=== PATIENT | female | born 1950 | race Native Hawaiian/Other Pacific Islander ===

== ENCOUNTER 2023-02-06 06:13 | Inpatient (IN) | payer OTHER, SELFPAY ==
[2023-01-30 13:58] VITALS: BMI 35.7
[2023-02-06] VITALS (28 sets, daily range): BP systolic 88–181; BP diastolic 38–102; PULSE 88–152; RESP 13–29; TEMP 35.8–36.9; O2SAT 90–100; BMI 36.1
[2023-02-06 07:08] LABS: COVID19 -Nasal RAPID Negative (Negative)
[2023-02-06] MEDS: LACTATED RINGERS 1,000 ML 42 ML IV ×4 (07:09→16:03)
--- NOTE | 2023-02-06 07:37 | PM.PREOP ---
Pre-operative Note COVID-19 COVID-19 status: Negative Result date/Date tested (Pos, Neg/Pending): 02/05/23 Criteria for continued procedure: Expected advancement of disease process, Possibility delay results in more complex future surgery or treatment, Increased loss of function, Continuing or worsening of significant or severe pain, Deterioration of the patient's condition or overall health and Delay expected to result in less-positive ultimate med/surg outcome Interval Note History & Physical reviewed/Exam performed by Physician: Yes Changes to H&P: No
[2023-02-06] MEDS: CEFAZOLIN 2 GM/100 ML PREMIX 100 ML IV ×3 (08:15→19:55)
[2023-02-06] MEDS: BUPIVACAINE LIPOSOME 266 MG/20 ML VIAL INJ (08:28)
[2023-02-06] MEDS: BUPIVACAINE 0.25% (PF) VIAL 30 ML INJ (08:30)
--- NOTE | 2023-02-06 08:38 | SUR.OPER ---
Prone on spine table, head in foam head support, padded chest and pelvic supports, gel pad at knees, lower legs supported by pillows; nipples, genitalia and toes free of pressure, arms secured on foam padded arm boards at <90 degrees abduction. Tape over blanket at thigh secured to table.
[2023-02-06] MEDS: ACETAMINOPHEN IV 1,000 MG/100 ML VIAL 400 MG IV (12:51)
--- NOTE | 2023-02-06 13:32 | DI.RAD.S_ITS ---
PROCEDURE: XR LUMBAR SPINE 2-3V INDICATIONS: L2-3, L3-4, L4-5 TLIF TECHNIQUE: 2 views of the lumbar spine were acquired. COMPARISON: None. FINDINGS: 2 limited intraoperative fluoroscopic images of the lumbar spine demonstrate posterior spinal fusion of L2 through L5 with associated discectomies at these levels and placement of interbody spacers. IMPRESSION: Intraoperative fluoroscopic support for posterior spinal fusion of L2 through L5. Please see operative report for further details. Dictated by: Willie Cabral M.D. on 02/06/2023 at 14:06 Approved by: Willie Cabral M.D. on 02/06/2023 at 14:08
--- NOTE | 2023-02-06 13:53 | PM.OP.1 ---
Operative Date/Time/Diagnoses Date of procedure: 02/06/23 Time of procedure: 07:40 Pre-op diagnosis: 1. L2-3, L3-4, L4-5 spondylolisthesis 2. L2-3, L3-4, L4-5 spinal stenosis with neurogenic claudication Post-op diagnosis: same Procedure & Clinicians Procedure: 1. L2-3, L3-4, L4-5 Postero-lateral and posterior interbody fusion 2. L2-3, L3-4, L4-5 interbody cage placement. 3. L2-3, L3-4, L4-5 decompressive laminectomy with bilateral facetecomies 4. L2-3, L3-4, L4-5 Posterior segmental instrumentation 5. [place] of bone marrow from iliac crest 6. Utilization of microsurgical technique and operating microscope 7. Utilization of robotic assisted navigation surgery Same procedure as scheduled: Yes Indications: Patient has been having chronic back pain and worsening lumbar radiculopathy and symptoms of neurogenic claudication. Patient failed multiple conservative management with worsening pain weakness and numbness in her lower extremity. Patient has been having difficulty performing activity of daily living. After discussing risks benefits of treatment options, patient elected proceed with surgery. Surgeon: Harriet Carrera Deli Manager: Theodora Olmos Click Yes if Unassisted: No Anesthesia Type: General Operative Notes Closure Type: primary Specimen(s): none sent Prosthetic devices, grafts, tissues, transplants, or devices: Globus CREO MIS screws, Rise cages Applied: catheter Estimated Blood Loss (mL): 500 Blood products transfused: none Procedure in detail: Patient was seen in the preoperative area. Risks and benefits of the surgery was discussed with the patient. Informed consent was obtained from the patient and placed in the chart. Surgical site was marked. Patient was taken to the operative room. General anesthesia was administered. Prophylactic antibiotic was given to the patient less than 30 min before the incision was made. Patient was placed into a prone position on the Bahman table. Patient's back was then prepped and draped in the sterile fashion. Time-out was performed at this time. After patient was prepped and draped, patient's PSIS was palpated and marked bilaterally. Small 1 cm incision was made over the PSIS for placement of the reference probes. Two trocar was placed into the PSIS 1 on each side. The reference probe was attached to the trocar of the reference apparatus. At this time the C-arm imaging was used to confirm AP and lateral of L2, L3, L4, L5 vertebrae and merged the C-arm imaging using the thesweetlink robotic navigation system with the CT of the lumbar spine. After successful merging was completed and confirmed, skin marker was used to tessie out the skin incision using the thesweetlink robotic arm. Bilateral incision was made at this time. Pre templated trajectory was used and guided using the thesweetlink robotic navigation system for bilateral L2 L3, L4, L5 pedicle screw placement. This was done by using the robotic arm to guide the high-speed bur to make a cortical entry point. Next a drill was placed also using the robotic arm and guided using the navigation system drilling partially through bilateral L2, L3, L4, L5 pedicles. Next L2, L3, L4, L5 pedicle screws it was pre templated and measured was placed onto the power otr van cdl truck driver and inserted into the pedicles bilaterally. After all 6 screws were placed C-arm imaging was taken of both AP and lateral to confirm the placement. Excellent placement of the screws were confirmed and a matched precisely with the pre planned screw placement using the navigation system. MARs retractor was inserted using [employer] Yoga[employer] guidence. Globus MARS retractors was placed inside the incision and docked onto the L2, L3, L4 lamina. Using microsurgical technique and operating microscope, a L2, L3, L4 laminectomy and L2-3, L3-4, L4-5 facetectomy was performed using a Kerrison rongeur. Patient was found have severe central, lateral recess and neural foramen stenosis which was fully decompressed after the laminectomy and facetectomy. More than 75% of the facets were removed during the process of decompression rendering L2-3, L3-4, L4-5 level grossly unstable and required a fusion procedure at the same time. The disc space at L2-3, L3-4, L4-5 was identified, and a total diskectomy was performed at L2-3, L3-4, L4-5 level. The endplates were decorticated using a rasp and shaver. The total diskectomy and decortication was performed at L2-3, L3-4, L4-5 level in order to to accomplish a L2-3, L3-4, L4-5 fusion. The local bone from the laminectomy and facetectomy was saved for local bone grafting. After the total diskectomy and decortication was completed, Trifecta bone graft material was combined with local bone that was harvested earlier. At this time, a separate skin is incision was made over the iliac crest. A Jamshidi needle was inserted into the iliac crest through a separate skin incision. 5 cc of bone marrow aspiration was obtained through the separate skin incision using a Jamshidi needle from the iliac crest. The bone marrow aspiration was combined with local bone and the Trifecta bone grafting material. The bone grafting material was placed into the L2-3, L3-4, L4-5 interbody space along with expandable cages. One cage each was inserted into the L2-3 L3-4 L4-5 interbody space along with bone graft material. The cage was expanded to its maximum height using the torque limiting screwdriver. The disc preparation as well as the cage insertion were also performed under navigation guidance. After the cage was placed, AP and lateral C-arm imaging was taken to confirm placement of the cage and excellent position was confirmed. Globus MARS retractor was inserted and docked onto the L2-3, L3-4 L4-5 posterolateral gutter on the right side. Using the power drill, posterior-lateral decortication was performed at L2-3, L3-4 L4-5 level until bleeding cortical bone was identified. The remaining bone grafting material was placed into the L2-3, L3-4 L4-5 posterior lateral gutter he order to accomplish posterolateral fusion at the L2-3, L3-4, L4-5 level. At this time the tulips were attached to the L2, L3, L4, L5 pedicle screw shanks. After measuring the length of the rods, they were inserted into the tulips of the pedicle screws and locked in place using locking caps and torque limiting screwdriver bilaterally. Total 6 caps and 2 titanium rods was used in order to complete the posterior instrumentation construct. After all the hardware was placed, and confirmed with AP and lateral C-arm imaging, the wound was then irrigated with sterile normal saline and packed with Ray-Heena gauze for 3 min to accomplish hemostasis. After the gauze was removed the deep fascia was closed with #1 Vicryl suture. The subcutaneous layer was closed with 2-0 Vicryl. The skin was closed with skin pj. Patient tolerated the procedure well. There were no complications. Neuro monitoring system was used to monitor patient's neurologic status throughout entire procedure. There was no disturbance of the neural monitoring signals throughout the case. Complications: none Post-operative Condition: stable Disposition: PACU Plan for aftercare: Admit to inpatient hospital
[2023-02-06] MEDS: HYDROMORPHONE 2 MG INJ IV ×4 (15:18→17:11)
--- NOTE | 2023-02-06 15:38 | SUR.PHASEI ---
Dr Garcia notified of atrial fib rate increasing to 130's 140's periodically. Instruced to give metoprolol 5 mg IV only if pt did not take her's this a.m. Pt too 25 mg at 0500 so metoprolol 5 mg iv not given
--- NOTE | 2023-02-06 15:42 | SUR.PHASEI ---
ST initially charted for rhythms. Pt has been in Atrial fib rates low 100's to 130's.
[2023-02-06] MEDS: hydrOXYzine pamoate 25 MG CAPSULE PO (15:48)
[2023-02-06] MEDS: METOPROLOL TARTRATE 5 MG/5 ML INJ IV (16:01)
--- NOTE | 2023-02-06 16:04 | SUR.PHASEI ---
Orders receivedd from Dr Garcia for atrial fib rates 140's - 150's. Given over 5 minutes with immediate results. A-fib now low 100's to 115 .
--- NOTE | 2023-02-06 16:08 | SUR.PHASEI ---
lower back dressing dry and intact. Pt resting quietly with not complaints.
--- NOTE | 2023-02-06 16:19 | SUR.PHASEI ---
Attempted to call report. Faina will call back.
--- NOTE | 2023-02-06 16:55 | SUR.PHASEI ---
Repositioned for comfort to left side-lying. Remedicated with Dilauddid 0.5 mg IV New order received for 25MG PO metoprolol now for HR 130's - 140's atrial fib. transfer to floor delayed due to pt condition.
[2023-02-06] MEDS: METOPROLOL IR 25 MG TABLET PO ×2 (17:01→19:54)
--- NOTE | 2023-02-06 17:16 | SUR.PHASEI ---
Notified Dr Garcia of pt's condition. Atrial fib 140's No new orders recieved at this time. Awaiting new orderws
--- NOTE | 2023-02-06 17:18 | SUR.PHASEI ---
Awaiting new orders
--- NOTE | 2023-02-06 17:34 | SUR.PHASEI ---
report to Ishmael PACK
--- NOTE | 2023-02-06 17:53 | SUR.PHASEI ---
Dr. Carrera to call [facility] and have a consult with Dr. Green. Pt to be admitted to the ICU. for increased heart rate of the 140-155.
--- NOTE | 2023-02-06 17:59 | SUR.PHASEI ---
report given to Glenny Aggarwal RN.
--- NOTE | 2023-02-06 18:31 | PC.NURSE ---
Admit Note Patient arrived to room from PACU at this time. Bedside report received from Glenny. Patient is alert and oriented x3, answering all questions appropriately. RA with SpO2 95%. Afib 130s to 140s. Denies any pain. Dressing to back D/I, small shadow drainage visible and outlined. Area of blanchable erythema over each hip. Good pulses to both LEs, numbness of feet at baseline per pt. Rapp in place and draining. Oriented to room and to call light/bed/tv controls. Bed alarm on for safety. Pt very diaphoretic, linens/gown changed.
[2023-02-06] MEDS: dilTIAZem 5 MG/ML SDV 20 MG IV (18:42)
[2023-02-06] MEDS: METFORMIN HCL 500 MG TABLET 250 MG PO (18:44)
[2023-02-06] MEDS: LACTATED RINGERS 1,000 ML 125 ML IV (18:46)
[2023-02-06] MEDS: AMLODIPINE 5 MG TABLET 10 MG PO (18:46)
[2023-02-06] MEDS: glyBURIDE 2.5 MG TABLET PO (18:46)
--- NOTE | 2023-02-06 19:08 | DI.RAD.S_ITS ---
PROCEDURE: XR CHEST 1V INDICATIONS: sob TECHNIQUE: One view of the chest was acquired. COMPARISON: None. FINDINGS: Surgical changes and devices: None. Lungs and pleura: There is pulmonary vascular prominence consistent with pulmonary edema. A small left pleural effusion is present. No pneumothorax. Mediastinum: Mediastinal contours appear normal. Heart size is enlarged. Bones and chest wall: No suspicious bony lesions. Overlying soft tissues appear unremarkable. IMPRESSION: 1. Pulmonary edema with cardiomegaly and small left pleural effusion compatible with congestive heart failure. Dictated by: Elijah Mcfadden M.D. on 02/06/2023 at 20:31 Approved by: Elijah Mcfadden M.D. on 02/06/2023 at 20:32
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
[2023-02-06] MEDS: DOCUSATE 100 MG CAPSULE PO (20:57)
[2023-02-06] MEDS: INSULIN LISPRO 100 UNIT/ML 3ML VIAL SUBCUT (20:57)
[2023-02-06] MEDS: SENNOSIDES 8.6 MG TABLET 17.2 MG PO (20:57)
[2023-02-06 21:02] LABS: Hematocrit 33.4 % (36-46); Hemoglobin 10.7 g/dL (12.0-16.0); Mean Corpuscular HGB Conc 32.2 % (30-36); Mean Corpuscular Hemoglobin 28.5 PG (26-34); Mean Corpuscular Volume 88.6 fL (80-100); Platelet Count 238 X10^3/uL (150-400); Red Blood Cell Count 3.77 X10^6/uL (4.0-5.2); Red Cell Distribution Width 12.8 % (11.6-14.8); White Blood Cell Count 15.2 X10^3/uL (4.5-11.0)
[2023-02-06 21:18] LABS: Alanine Aminotransferase 161 IU/L (<35); Albumin 3.6 g/dL (3.5-5.0); Albumin Globulin Ratio 1.2 (1.0-2.8); Alkaline Phosphatase 69 U/L (38-126); Aspartate Aminotransferase 308 IU/L (14-36); BUN Creatinine Ratio 26.6 (6-22); Bilirubin Total 0.7 mg/dL (0.2-1.3); Blood Urea Nitrogen 17 mg/dL (7-17); Carbon Dioxide 22 mmol/L (22-32); Chloride 100 mmol/L (98-107); Estimated Glomerular Filt Rate > 60 mL/min (>60); Glucose 271 mg/dL (80-110); HEMOLYSIS < 15 (0-50); Potassium 4.5 mmol/L (3.4-5.1); Sodium 133 mmol/L (137-145); Total Protein 6.6 g/dL (6.3-8.2)
[2023-02-06 21:26] LABS: NT-proBNP (BNP-Adult 18+) 459 pg/mL (<125)
[2023-02-06 21:29] LABS: Troponin I 0.095 ng/mL (0.01-0.034)
[2023-02-06] MEDS: FUROSEMIDE 20 MG/2 ML VIAL IV (22:34)
[2023-02-06] MEDS: ACETAMINOPHEN 325 MG TABLET 650 MG PO (22:34)
[2023-02-06 23:49] LABS: Troponin I 0.121 ng/mL (0.01-0.034)
[2023-02-07] VITALS (9 sets, daily range): BP systolic 122–179; BP diastolic 58–81; PULSE 89–115; RESP 18–23; TEMP 36.6–37.1; O2SAT 95–99
[2023-02-07] MEDS: LOSARTAN 50 MG TABLET PO (00:31)
[2023-02-07 00:32] LABS: MRSA (Nasal) PCR Not Detected (Not Detect)
[2023-02-07] MEDS: HYDROMORPHONE 0.5 MG INJ IV (00:39)
[2023-02-07] MEDS: CEFAZOLIN 2 GM/100 ML PREMIX 100 ML IV (03:55)
[2023-02-07 05:12] LABS: Add Manual Diff / Slide Review NO; Basophils Absolute Auto 0 /uL (0-100); Basophils Percent Auto 0.2 % (0-2); Eosinophils Absolute Auto 0 /uL (0-450); Hematocrit 33.8 % (36-46); Hemoglobin 11.1 g/dL (12.0-16.0); Lymphocytes Absolute Auto 1300 /uL (1100-4500); Lymphocytes Percent Auto 8.4 % (25-40); Mean Corpuscular HGB Conc 32.7 % (30-36); Mean Corpuscular Hemoglobin 28.9 PG (26-34); Mean Corpuscular Volume 88.4 fL (80-100); Monocytes Absolute Auto 1600 /uL (0-900); Monocytes Percent Auto 9.8 % (3-14); Neutrophils Absolute Auto 13000 /uL (1500-7000); Neutrophils Percent Auto 81.6 % (50-75); Platelet Count 192 X10^3/uL (150-400); Red Blood Cell Count 3.83 X10^6/uL (4.0-5.2); Red Cell Distribution Width 12.7 % (11.6-14.8)
[2023-02-07 05:23] LABS: Alanine Aminotransferase 225 IU/L (<35); Albumin 3.4 g/dL (3.5-5.0); Albumin Globulin Ratio 1.1 (1.0-2.8); Alkaline Phosphatase 61 U/L (38-126); Aspartate Aminotransferase 586 IU/L (14-36); BUN Creatinine Ratio 25.8 (6-22); Bilirubin Total 0.9 mg/dL (0.2-1.3); Blood Urea Nitrogen 16 mg/dL (7-17); Calcium 8.3 mg/dL (8.4-10.2); Carbon Dioxide 26 mmol/L (22-32); Chloride 98 mmol/L (98-107); Estimated Glomerular Filt Rate > 60 mL/min (>60); Glucose 214 mg/dL (80-110); HEMOLYSIS < 15 (0-50); Potassium 4.6 mmol/L (3.4-5.1); Sodium 132 mmol/L (137-145); Total Protein 6.4 g/dL (6.3-8.2)
[2023-02-07 05:48] LABS: Troponin I 0.127 ng/mL (0.01-0.034)
--- NOTE | 2023-02-07 06:15 | PC.NURSE ---
Net Mender Note-Patient remains in A-fib, rate 80s-115, BP 140s/70s to 180/80s, PO metorolol and losartan given, IV Lasix given, 1525ml UOP. Denies chest pain, palpitations, or dyspnea. Post-op back pain controlled with Tylenol and IV Dilaudid. Drsg reinforced. Patient sat up in chair for few hours.
--- NOTE | 2023-02-07 06:24 | DI.ECHO.S_ITS ---
+ + :Name: RISHABH CRAWFORD Study Date: 02/07/2023 Height: 60 in : :Hospital ReadingLocation: Weight: 185 lb : : Gender: Female BSA: 1.8 m2 : :: 1950 Age: 72 yrs BP: 149/71 mmHg: :Reason For Study: ELEVATED TROPNIN : :Ordering Physician: RYANNE, : :SHAUN Performed By: Candis Talavera : :Referring: SHAUN PEARL : + + Interpretation Summary 1) Normal left ventricular thickness, size, wall motion, and systolic function (EF 60-65%). 2) The right ventricle is at the upper limits of normal in size. Right ventricular systolic function is at the lower limits of normal. 3) There is mild to moderate aortic stenosis (valve area 1.2cm2, mean gradient 23mmHg, severity ratio 0.38). 4) No prior Echo available for comparison. Procedure: A two-dimensional transthoracic echocardiogram with color flow and Doppler was performed. The study quality was technically adequate. There is no prior echocardiogram noted for this patient. The patient was in atrial fibrillation with heart rates between 87-111 bpm during the exam. Left Ventricle: The left ventricle is normal in size and wall thickness. The ejection fraction is estimated to be 60-65%. Left ventricular systolic function appears normal without focal wall motion abnormalities. Diastolic parameters suggest a pseudonormalization pattern, consistent with probable elevated filling pressures. Right Ventricle: The right ventricle is at the upper limits of normal in size. Right ventricular systolic function is at the lower limits of normal. Atria: The left atrium is mildly dilated. Right atrial size is normal. There is no Doppler evidence for an interatrial shunt. Mitral Valve: The mitral valve is normal in structure and function. There is mild mitral regurgitation. Aortic Valve: The aortic valve is mildly calcified. The peak aortic velocity is 3.2 m/sec. The aortic valve mean gradient is 23 mmHg. The calculated aortic valve area is 1.2 cm2. There is mild to moderate aortic stenosis. There is mild aortic regurgitation. Tricuspid Valve: The tricuspid valve leaflets are thin and pliable. There is mild tricuspid regurgitation. The right ventricular systolic pressure is estimated to be at least 43 mmHg based on an estimated right atrial pressure of 3 mm Hg. Pulmonic Valve: The pulmonic valve leaflets are thin and pliable; valve motion is normal. There is mild to moderate pulmonic regurgitation. Great Vessels: The aortic root is normal size. The dimensions of the ascending aorta are normal. The IVC is of normal diameter and collapses greater than 50% with a sniff. This suggests a low right atrial pressure of 3 mm Hg. Pericardium/ Pleura There is no pericardial effusion. There is no pleural effusion. MMode/2D Measurements & Calculations LVIDd: 4.6 cm LVOT diam: 2.0 cm LVIDs: 2.8 cm Ao root diam: 2.8 cm FS: 38.3 % asc Aorta Diam: 3.4 cm IVSd: 0.97 cm Ao Arch Diam (Prox Trans): 2.5 cm LVPWd: 0.83 cm LV aaron. diameter/BSA (cm/m^2): 2.5 LV sys. diameter/BSA (cm/m^2): 1.6 LA A2 area: 23.1 cm2 RA long axis: 5.5 cm LA A4 area: 23.1 cm2 RA area: 19.2 cm2 LA length (vol): 6.3 cm RA vol: 57.6 ml LA vol: 71.6 ml RA : 31.9 ml/m2 LA vol index: 39.6 ml/m2 IVC diam: 1.9 cm RVD1 (basal): 4.0 cm RVD2 (mid): 3.6 cm TAPSE: 1.7 cm Doppler Measurements & Calculations Ao V2 max: 319.5 cm/sec LVOT Max Aleksey: 125.9 cm/sec Ao V2 mean: 216.5 cm/sec LV V1 max P.3 mmHg Ao max P.5 mmHg LV V1 VTI: 20.7 cm Ao mean P.1 mmHg HARJIT(I,D): 1.2 cm2 Ao V2 VTI: 54.3 cm HARJIT(V,D): 1.2 cm2 sev ratio: 0.38 HARJIT indexed to BSA (cm^2/m^2): 0.65 AI P1/2t: 571.0 msec AI dec slope: 203.9 cm/sec2 MV E max aleksey: 132.1 cm/sec TR max aleksey: 317.9 cm/sec MV A max aleksey: 1.3 cm/sec TR max P.4 mmHg MV E/A: 100.0 PA V2 max: 113.4 cm/sec Med Peak E' Aleksey: 7.8 cm/sec PA V2 mean: 68.8 cm/sec E/E' med: 17.0 PA mean P.2 mmHg Lat Peak E' Aleksey: 10.7 cm/sec PA pr(Accel): 58.4 mmHg E/E' lat: 12.3 E/e' average: 14.7 MV dec time: 0.20 sec MVA(VTI): 2.2 cm2 MV V2 mean: 98.2 cm/sec SV(LVOT): 63.4 ml MV mean P.4 mmHg MV V2 VTI: 28.6 cm Reading Physician:10:35 AM
[2023-02-07] MEDS: ACETAMINOPHEN 325 MG TABLET 650 MG PO (06:55)
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
[2023-02-07] MEDS: INSULIN LISPRO 100 UNIT/ML 3ML VIAL SUBCUT ×3 (07:57→17:01)
[2023-02-07] MEDS: DOCUSATE 100 MG CAPSULE PO ×2 (08:16→21:07)
[2023-02-07] MEDS: METFORMIN HCL 500 MG TABLET PO (08:16)
[2023-02-07] MEDS: SODIUM CHLORIDE 0.9% FLUSH 10 ML IV ×2 (08:16→21:27)
[2023-02-07] MEDS: METOPROLOL IR 25 MG TABLET PO ×3 (08:16→21:07)
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
[2023-02-07] MEDS: OXYCODONE IR 10 MG TABLET PO ×4 (10:07→23:37)
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
--- NOTE | 2023-02-07 13:14 | PT.IPTN ---
Current Diagnoses Spondylolisthesis, lumbar region (02/06/23) Spinal stenosis, lumbar region with neurogenic claudication (02/06/23) Surgery Performed Operation Date: 02/06/23 07:45 Actual Procedures p L2-3, L3-4, L4-5 TLIF w. posterior instrumentation -Robot(Not Applicable) - Harriet Carrera MD Physical Therapy Treatment Note M2 PT-IP Current Condition Start: 02/07/23 07:27 Freq: NEEDED Status: Active Protocol: Document 02/07/23 08:04 [facility] (Rec: 02/07/23 08:16 [facility] [id number]) Physical Therapy Current Condition Current Condition Evaluation Date 02/07/23 Treatment Diagnosis TLIF M3 PT-IP Subjective Start: 02/07/23 07:27 Freq: NEEDED Status: Active Protocol: Document 02/07/23 13:46 TS (Rec: 02/07/23 14:07 TS [id number]) Subjective Physical Therapy Visit Type Type Treatment Note Visit Start Time 13:14 Visit Stop Time 13:40 Total Visit Minutes 26 Number of PHYSICIAN INDUSTRIAL Visits 1 Physical Therapy Visit Comments Patient Comments Pt reports she is feeling tired and looks lethargic. She would like to go to rehab to get stronger. Therapy Pain Assessment Pain When Pain Assessed During Mobility Pain Present Pain Present Pain Reported Location low back Pain Management Techniques Apply Cold,Re-positioning, Timing of Activity with Medications M4 PT-IP Mobility and Gait Start: 02/07/23 07:27 Freq: NEEDED Status: Active Protocol: Document 02/07/23 13:46 TS (Rec: 02/07/23 14:07 TS [id number]) PT-Transfer Assessment Sit to and From Stand Sit to and from Stand Standby Assistance Equipment Transfer Assistive Device Gait Belt,Front Wheeled Walker Orthotic/Prosthetic Devices or Brace: No Transfers Transfer Destination Bed Transfer Technique Ambulated to bed Transfer Ability Level of Assist Standby Assistance Comments Mobility Comments Pt found resting in bed side chair, agreeable to PT session . She performed sit to stand x2 SBA, cues for BUE support and scooting to edge of chair. Pt ambulated to door ~15' SBA step to gait, c/o pain and weakness in her LE's and required rest break sitting on bed, no LOB noted. Sit to stand x1 from EOB SBA, ambulated back to recliner chair ~15' SBA. Stand to sit SBA, pt required cues for BUE support reaching back for arms of chair, pt maintaining precautions throughout session . Pt was left in bed with call light nearby, RN notified. Gait Assessment Gait Gait Assistance Required: Standby Assistance Distance (Feet) 30 Able to Maintain Weight Bearing Status Yes During Gait Assistive Devices Assistive Device Gait Belt,Front Wheeled Walker Orthotic/Prosthetic Devices or Brace: No Gait Deviations General Gait Pattern Antalgic,Decreased Stride Length,Decreased Feet Clearance,Flexed Trunk Factors Limiting Gait Function Factors Limiting Gait Function Decreased Strength,Pain Comments Gait Comments Pt ambulated ~30' in room SBA, she c/o weakness in LEs and fatigue affter ~15' before requiring rest break on bed, no signs of LOB. Stair Climbing Assessment Comments Stair Climbing Comments No stairs at home PT-Balance Assessment Sitting Balance and Reactions Static Sitting Balance Ability Good Dynamic Sitting Balance Ability Fair Standing Balance and Reactions Static Standing Balance Ability Fair Dynamic Standing Balance Ability Poor Device Used FWW M5 PT-IP Objective Assessments Start: 02/07/23 07:27 Freq: NEEDED Status: Active Protocol: Document 02/07/23 08:04 [facility] (Rec: 02/07/23 08:16 [facility] [id number]) Orientation Orientation/Cognition Level of Alertness Alert Language Function Ability No Deficits Noted Safety Awareness Understands Safety Issues Memory Description No Deficits Noted Gross Range of Motion Lower Extremity ROM Assessment Bilaterally Impaired Impairments d/t pain Strength Lower Extremity Strength Assessment Bilaterally Impaired M6 PT-IP Treatment Start: 02/07/23 07:27 Freq: NEEDED Status: Active Protocol: Document 02/07/23 13:46 (Rec: 02/07/23 14:07 [id number]) Physical Therapy Treatment Education Education Provided Precautions,Weight Bearing Status,Post-Op Packet,Safety Other Treatments Other Treatment Performed Educated pt on spinal precautions, recalled 2/3. M7 PT-IP Assessment and Plan Start: 02/07/23 07:27 Freq: NEEDED Status: Active Protocol: Document 02/07/23 13:46 TS (Rec: 02/07/23 14:07 TS [id number]) PT Summary Assessment and Plan Potential Rehabilitation Potential Excellent Status of Condition at Evaluation Evolving Summary Impairments Pain,ROM,Strength,Balance, Coordination,Sensation,Bed Mobility,Transfers,Gait, Activity Tolerance Assessment Summary Pt progressed her sit to stands x3 SBA and increased ambulation distance to ~30 SBA . Pt c/o of weakness in LEs with static standing march and during ambulation, she required a 1min rest break after ~15'. Pt did not perform bed mobility this session, wanting to stay in chair due to being more comfortable and easier to mobilize from. PT recommends SNF vs Home depending on progression of pt with PT and with caregiver training with daughter. Currently pt is ind at home and has weakness in LEs and decreased activity tolerance making her unsafe to return home independently at this time. Goals Bed Mobility Goal Standby Assistance Transfer Goal Standby Assistance Gait Goal Standby Assistance Gait Distance 150ft Days to Meet Goals 6 Frequency of Treatment Frequency Of Treatment Twice a Day Treatment Plan Physical Therapy Treatment Plan Bed Mobility Training,Transfer Training,Gait Training, Therapeutic Exercise,Balance Retraining,Post Op Education, Discharge Planning,Hot or Cold Pack,Neuromuscular Re-ed, Coordination Retraining,Manual Therapy Precautions Lumbar Precautions Log Roll,No Twisting,Limit Bending,Lifting Restriction of 10 lbs,Gait Belt above Incisional Area Weight Bearing Status Weight Bearing Status Weight Bear as Tolerated Recommendations To Nursing Amount of Assist Needed 1 Person Assist Discharge Recommendations PT Discharge Recommendations Home vs SNF Equipment Needed for Home Before sock aide, long handle shoe Discharge horn, cane, long handle shower brush may be helpful Transportation Needs at Discharge Private Vehicle
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
--- NOTE | 2023-02-07 15:12 | CM.DANOTE ---
DCP/Assessment: Reviewed chart. Pateint is a 72yr old female admitted [facility] for elective TLIF. Primary payor is 1)[employer] Medicare ADV. No PCP listed. PRINT PROJECT MANAGER met with patient and daughter/Theodora at bedside. Patient and daughter both feel that patient should go to SNF for short stay. Patient seen by PT and SNF vs. home recommended. Patient resides with family and lives in [place]. Family would like SNF in that area if possible. First choice is [facility]. PRINT PROJECT MANAGER asked BOBBI/Cortney to initiate referral. Patient and family made aware that if insurance declines SNF she will either have to pay for SNF privately or go home with HH. Family in agreement to take patient home with HH if needed. Caregiver training scheduled for tomorrow at 11:00AM. Hopefully CM team will know prior to 11 if insurance has approved then caregiver training can be cancelled. Daughter reports that she can provide transportation if patient approved and accepted at [facility]. P: Pending. KJS Discharge Planning/Care Management Advanced directive, confirm from FAMILY Start: 02/06/23 18:34 Freq: Q24H Status: Active Protocol: Document 02/06/23 18:48 CARLY (Rec: 02/06/23 18:49 CARLY [id number]) Advance Directive, confirm on record Time 18:48 Person contacted pt Copy received No Advanced directive available on record No CM Discharge Assessment Start: 02/07/23 15:00 Freq: Status: Active Protocol: Document 02/07/23 15:00 KJS (Rec: 02/07/23 15:11 KJS [id number]) Discharge Planning Assessment Assigned Web Analytics Specialist KOLTON Umana DPOA/Assigned Designee Name Theodora (daughter) # Advance Directives? Yes Advance Directives on File No History Provided By Patient,Family Member,Medical Record Prior Living Arrangements House Household Members children Type of transporation used prior to Relies on Others admit Independent with ADL's Yes: Per notes, patient I in ADL's. Is patient alert and oriented? Yes Needs Assistance With Meal Prep,Home Chores / Shopping Comment Daughter assists patient in the residence. Caregiver for Another No Patient/Family Preference Senior Care Facility Barriers to Discharge No Comment Waiting for [employer] authorization. Patient wants to go to [facility]. Discharge Plan Senior Care Facility Transportation Arrangement Family Referrals Initiated Senior Care If patient plan is SNF: Has PASSR been No completed? Medicare Choice List Provided Yes SNF/HH Preference [facility] . Contact Name/Phone Lou stapleton# [phone] Has Agency SNF been contacted Yes Whiteboard Updated in Patient Room with Yes name and ext. # of Web Analytics Specialist Next Review Type Continued Stay Review Pre-Anesthesia Assessment Start: 01/30/23 13:58 Freq: Status: Complete Protocol: Document 01/30/23 13:58 CAB (Rec: 01/30/23 14:52 CAB [id number]) Pre-Anesthesia Assessment Preferred Name Davin Patient Information Reviewed Via Phone Assessment Assessment Completed With Patient Diagnostic Results BMP/CMP,CBC Comment Outside labs scanned Primary Care Provider deepak Carlisle PCP pre-op clearance 01/19/23 scanned Seen Specialist in Last 12 Months Yes Specialist Seen Orthopedist Primary Language Burkinan Garden Equipment Mechanic Required No Height 152.4 cm Weight 83.007 kg Body Mass Index (BMI) 35.7 Hearing Ability Normal Visual Assist None Dentition Type Full- Upper Barriers to Learning None Hx Anesthesia Reactions No: AMBROSIO-untreated, awaiting referral for new CPAP Additional comment Please see PCP pre-op clearance Hx Family Anesthesia Reaction No Hx Malignant Hyperthermia No Hx Blood Transfusions No Anesthesia Review Requested No Escrow Manager No alcohol intake never Smoking Status Never smoker Substance Use Type does not use Pain Present Pain Reported Musculoskeletal Symptoms Abnormal Gait,Back Pain, Difficulty Walking,Radiating Pain into Limb History of Falling (Recent or History of No ) Patient is completely paralyzed or No completely immobile Mental Status Oriented to own ability Is patient on oxygen? No Does patient have BRYAN/SOB Yes: If I walk too far, then it triggers pain in my back Hx Sleep Apnea Yes: Waiting on new referral for new machine CPAP/BIPAP use prescribed not used Currently Taking a Beta Adelita Yes: Metoprolol Can You Climb a Flight of Stairs Without No SOB Hx Chest Pain No Hx SOB Yes: If I walk too far, then it triggers pain in my back Hx Syncope or Dizziness No Anti-Coagulant Therapy Yes: 81mg ASA - ok to hold 7 days prior per PCP Has a Ground School Instructor No Cardiac Testing No Hx Pacemaker/ICD No Pacemaker Rep Required? No Cardiac Clearance Received Not Applicable Diet Type At Home Regular Dysphagia No Gastrointestinal Symptoms None Chronic UTI No Bladder Pattern Frequency Urinary Catheter Present No Hx Urinary Self Catheterization No Diabetes Yes HgbA1C 6.6 Patient No Lactating No Hx Drug Resistant Organism No Presence of External or Internal Medical Yes: Elías eye IOLs Devices Have you had any close contact with No someone diagnosed with COVID-19? Received a COVID vaccine? Yes Received all doses? Yes Marital Status / Lives With children Current Living Arrangements House Number of Floors (Floors) One Floor Support System Child/Children Does the Patient Have Assistance After Yes: Daughter will assist with Surgery care at home Patient Discharge Plan Description Return Home Comment Pt advised 2-3 day length of stay per surgeon Feels Safe in Current Environment Yes Been Physically Hurt or Threatened By a No Person in Current Environment Do you have thoughts of harming yourself None or others? Are you currently considering suicide? No Do you have a plan to hurt yourself or No Plan others? Do You Have Any Spiritual Beliefs That No May Affect Your HC Choices? Do You Have Any Cultural Practices That No May Affect Your HC Choices? Comment Sikhism Who Can We Speak to About Patient's Care Family, friends Identifying Code for Release of Patient Declines to issue Information Health Care Proxy/Next of Kin Theodora (daughter) Health Care Proxy or cell: [phone] Emergency Contact Name Theodora (daughter) Emergency Contact or cell: Advance Directives? Yes Advance Directives on File No Power of City Council Member Yes Power of City Council Member Name Theodora gunter) Power of City Council Member or cell: [phone] PAC Instructions Bring CPAP/BIPAP,Diabetes instructions,Durable medical equipment,Medications to take/ avoid,Nasal antibiotic,No ETOH /petroleum product on skin DOS ,NPO,Post-op transportation, Pre-surgical wash,Sensory aids ,Sturdy shoes/comfortable clothes,Do not bring valuables and remove jewelry
[2023-02-07 16:32] LABS: Troponin I 0.094 ng/mL (0.01-0.034)
[2023-02-07] MEDS: AMLODIPINE 5 MG TABLET 10 MG PO (17:02)
[2023-02-07] MEDS: glyBURIDE 2.5 MG TABLET PO (17:02)
[2023-02-07] MEDS: METFORMIN HCL 500 MG TABLET 250 MG PO (17:02)
[2023-02-07] MEDS: SENNOSIDES 8.6 MG TABLET 17.2 MG PO (21:07)
[2023-02-08 00:12] VITALS: BP 130/64; PULSE 98; RESP 24; TEMP 37.3; O2SAT 98
[2023-02-08 04:00] VITALS: BP 143/67; PULSE 102; RESP 24; TEMP 37.2; O2SAT 95
[2023-02-08] MEDS: OXYCODONE IR 10 MG TABLET PO ×2 (04:13→09:20)
--- NOTE | 2023-02-08 05:28 | PC.NURSE ---
Patient medicated off and on for pain. ICe packs placed on back area. Patient able to sleep and move hips in med. waffle cushion obtained for patient.
[2023-02-08] MEDS: DOCUSATE 100 MG CAPSULE PO (08:18)
[2023-02-08] MEDS: METFORMIN HCL 500 MG TABLET PO (08:18)
[2023-02-08] MEDS: METOPROLOL IR 25 MG TABLET PO (08:18)
[2023-02-08] MEDS: LOSARTAN 50 MG TABLET PO (08:18)
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
[2023-02-08] MEDS: SODIUM CHLORIDE 0.9% FLUSH 10 ML IV (09:02)
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
[2023-02-08] MEDS: INSULIN LISPRO 100 UNIT/ML 3ML VIAL SUBCUT (11:35)
--- NOTE | 2023-02-08 12:03 | OT.IP.TRT ---
Current Diagnoses Spondylolisthesis, lumbar region (02/06/23) Spinal stenosis, lumbar region with neurogenic claudication (02/06/23) Surgery Performed Operation Date: 02/06/23 07:45 Actual Procedures p L2-3, L3-4, L4-5 TLIF w. posterior instrumentation -Robot(Not Applicable) - Harriet Carrera MD Occupational Therapy Treatment Note M2 OT-IP Current Condition Start: 02/07/23 13:37 Freq: Status: Active Protocol: Document 02/07/23 11:34 [facility] (Rec: 02/07/23 13:59 [facility] [id number]) Occupational Therapy Current Condition Current Condition Evaluation Date 02/07/23 Treatment Diagnosis S/p L23-, L3-4, L4-5 TLIF, A- fib rvr, decreased mobility Diagnosis Onset Date 02/06/23 Post Operative Precautions Lumbar Precautions Log Roll,No Twisting,Limit Bending,Lifting Restriction of 10 lbs,Gait Belt above Incisional Area M3 OT- IP Subjective and Pain Start: 02/07/23 13:37 Freq: Status: Active Protocol: Document 02/08/23 11:45 [facility] (Rec: 02/08/23 12:39 [facility] [id number]) OT- Subjective Occupational Therapy Visit Type Type Treatment Note Visit Start Time 11:45 Visit Stop Time 12:03 Total Visit Minutes 18 Occupational Therapy Visit Comments Patient Comments Pt not feeling up to showering but agreed to brush her mouth out at the sink. Patient/Caregiver Goals To go to skilled rehab OT Pain Assessment Pain When Pain Assessed At Rest Pain Present Pain Present Denied Pain M4 OT- IP ADL's Start: 02/07/23 13:37 Freq: Status: Active Protocol: Document 02/08/23 11:45 [facility] (Rec: 02/08/23 12:39 [facility] [id number]) OT ADL-Grooming General Evaluation Grooming Ability Standby Assistance Areas Needing Assistance Retrieving/Set-up of Grooming Items OT ADL-Oral Care General Eval Oral Care Ability Standby Assistance Comments Oral Care Comments VC to spit into a cup to best follow her back precautions OT ADL-Dressing General Eval Lower Body Dressing Ability Maximum Assistance OT ADL-Toileting Comments OT Toileting Comments Pt not having to go at this time. OT ADL-Bathing Comments OT Bathing Comments Pt refusing. M5 OT- IP IADL's Start: 02/07/23 13:37 Freq: Status: Active Protocol: Document 02/07/23 11:34 [facility] (Rec: 02/07/23 13:59 [facility] [id number]) OT-Instrumental Activities of Daily Living Deficits IADL Deficits Identified Deficits Home Safety Awareness Awareness of Need for Assistance at Home Good Awareness Home Safety Comments At this time would be beneficial for pt to have assist with needs. Pt is also a bit groggy from the pain medications. M6 OT- IP Functional Cognition Start: 02/07/23 13:37 Freq: Status: Active Protocol: Document 02/08/23 11:45 [facility] (Rec: 02/08/23 12:39 [facility] [id number]) Cognitive Factors Limiting Selfcare Function Cognitive Ability Level of Alertness Alert Patient Orientation Name,Place,Situation Attention Span Ability Capable of Focused Attention, Capable of Sustained Attention Ability to Follow Commands Able to Follow One Step Commands Cognitive Comments Cognitive Assessment Comments Pt doing a little better to follow commands but still needing cues for safety for hand placement to push up from the armrests of the recliner. M7 OT- IP Mobility and Balance Start: 02/07/23 13:37 Freq: Status: Active Protocol: Document 02/08/23 11:45 [facility] (Rec: 02/08/23 12:39 [facility] [id number]) OT-Transfer Assessment Sit to and From Stand Sit to and from Stand Minimal Assistance,Moderate Assistance Transfers Transfer Ability Contact Guard Assistance, Minimal Assistance Technique Transfer Destination Chair Transfer Technique Stand Step Pivot Devices Transfer Assistive Devices Gait Belt,Front Wheeled Walker Comments Mobility Comments Pt needing MIN/MODA to stand to the FWW. Initially needing CGA and then when turning with the FWW up to MODA as getting tired and unsteady on her feet. OT- Balance Assessment Sitting Balance and Reactions Static Sitting Balance Ability Good Dynamic Sitting Balance Ability Good Standing Balance and Reactions Static Standing Balance Ability Good Dynamic Standing Balance Ability Fair M9 OT- IP Assessment and Plan Start: 02/07/23 13:37 Freq: Status: Active Protocol: Document 02/08/23 11:45 [facility] (Rec: 02/08/23 12:39 [facility] [id number]) OT Summary Assessment and Plan Potential Rehabilitation Potential Good Analytic Complexity at Evaluation Moderate Summary OT Impairments Pain,Balance,Functional Mobility,Grooming,Dressing, Toileting,Bathing,Toilet Transfers,Shower Transfers, Activity Tolerance Progress Towards Goals Progressing Toward Goals Assessment Summary Pt still needing MIN/MODA for her balance when see tires. Pt looking to go to skilled rehab today and very motivated and cooperative to get better . Goals Self-Feeding Goal Independent Grooming Goal Independent Dressing Goal Independent Toileting Goal Independent Bathing Goal Independent Toilet Transfer Goal Independent Shower Transfer Goal Independent Days to Meet Goals 15 Frequency of Treatment Frequency Of Treatment Once a Day Treatment Plan OT Treatment Plan ADL Training,Functional Mobility,Patient/Family Education,Discharge Planning Discharge Recommendations OT Discharge Recommendations SNF Rehab Transportation Needs at Discharge Wheelchair/Cabulance
[2023-02-08 12:46] VITALS: BP 122/58; PULSE 104; RESP 15; TEMP 36.7; O2SAT 95
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
--- NOTE | 2023-02-08 12:59 | PC.NURSE ---
Called [facility] at [phone] to give nurse to nurse report, left message for return call. Pt to leave via wheelchair van at 1400.
--- NOTE | 2023-02-08 14:56 | CM.DPNOTE ---
DC Note Discharge today to [facility] as patient and daughter had planned. Insurance auth was secured by admissions team at [facility] Dr Grullon completed med rec and signed, Ortho RODRIGUEZ Funes completed DC orders to SNF and DC Summary [employer] recommending cabulance and daughter agreeable to paying; transport arranged by BOBBI Barr through [employer], bean picker at 1400 RAMONE Amezcua aware and giving report Plan: Discharge to [facility] via cabulance today JW
== END 2023-02-08 14:16 | DRG 453 ==
LOC: AC 08:45 → ICU 18:18
PROVIDERS: Internal Medicine; Admitting Provider Orthopaedic Surgery Orthopaedic Surgery of the Spine; Referring Provider Physical Medicine & Rehabilitation; Visit Provider Orthopaedic Surgery Orthopaedic Surgery of the Spine
PROC: 0SG10AJ Fusion of 2 or more Lumbar Vertebral Joints with Interbody Fusion Device, Posterior Approach, Anterior Column, Open Approach (ICD-10-PCS; principal; 2023-02-06 07:45)
DX: M48.062 Spinal stenosis, lumbar region with neurogenic claudication (principal); J81.0 Acute pulmonary edema; J96.01 Acute respiratory failure with hypoxia; I5A Non-ischemic myocardial injury (non-traumatic); M43.16 Spondylolisthesis, lumbar region; M54.16 Radiculopathy, lumbar region; I48.91 Unspecified atrial fibrillation; E11.9 Type 2 diabetes mellitus without complications; I10 Essential (primary) hypertension; G47.33 Obstructive sleep apnea (adult) (pediatric); Z20.822 Contact with and (suspected) exposure to COVID-19; Z79.84 Long term (current) use of oral hypoglycemic drugs
CPT/HCPCS: 36415; 71045; 72100; 76000; 80053; 82962; 83880; 84484; 85025; 85027; 87635; 87797; 93306; 97116; 97162; 97166; 97530; 97535; C9803; C1713; C9290; J0131; J0330; J0690; J1100; J1170; J1815; J1940; J2250; J2405; J2704; J3010; J3490